=== PATIENT | male | born 1980 | race African-American/Black ===

== ENCOUNTER 2018-04-13 00:20 | Emergency (ER) | payer SELFPAY ==
[2018-04-13] MEDS ORDERED: NORMAL SALINE 1000 ML 1,000 ML IV ONE (00:32)
--- NOTE | 2018-04-13 00:35 | ER Document Report ---
ED General - General Stated Complaint: ETOH Time Seen by Provider: 04/13/18 00:24 Notes: Patient is a 38-year-old male that comes emergency department for chief complaint of feeling weak and tired, he comes by EMS, EMS states that family called and initially patient stated he did not want to come but finally agreed, EMS states the patient had a heart rate initially in the 60s, and then he had bradycardia in the 40s, we placed an IV and gave 0.5 mg of atropine, heart rate went up to 120s and then back down to the 70s. He has been in the 70s and 80s since that time. Patient states he did not have any shortness of breath, he did not have chest pain, he has not had altered mental status and has remained conversational, patient has no cardiac medical history. He denies any medications. He states he had 4 beers tonight in order alcohol. He does have a history of heavy drinking. He denies any recreational drugs. He denies any current complaints other than "feeling really tired". Cousin at bedside. TRAVEL OUTSIDE OF THE [place] IN LAST 30 DAYS: No - Related Data Allergies/Adverse Reactions: trazodone [Trazodone] Allergy (Verified 01/29/15 22:51) Past Medical History - General Information source: Patient - Social History Smoking Status: Never Smoker Frequency of alcohol use: Social Drug Abuse: None Lives with: Friend Family History: None, Reviewed & Not Pertinent, Other Pulmonary Medical History: Denies: Hx Tuberculosis Neurological Medical History: Reports: Hx Migraine Renal/ Medical History: Denies: Hx Epididymitis, Hx Testicular Torsion Psychiatric Medical History: Reports: Hx Bipolar Disorder, Hx Depression, Hx Schizophrenia Past Surgical History: Reports: Hx Orthopedic Surgery. Denies: Hx Appendectomy , Hx Bowel Surgery, Hx Cholecystectomy, Hx Coronary Artery Bypass Graft, Hx Gastric Bypass Surgery, Hx Herniorrhaphy, Hx Pacemaker, Hx Tonsillectomy - Immunizations Hx Diphtheria, Pertussis, Tetanus Vaccination: Yes Review of Systems - Review of Systems Constitutional: See HPI EENT: No symptoms reported Cardiovascular: No symptoms reported Respiratory: No symptoms reported Gastrointestinal: No symptoms reported Genitourinary: No symptoms reported Male Genitourinary: No symptoms reported Musculoskeletal: No symptoms reported Skin: No symptoms reported Hematologic/Lymphatic: No symptoms reported Neurological/Psychological: See HPI Physical Exam - Vital signs Vitals: Resp Pulse Ox 14 100 04/13/18 00:30 04/13/18 00:30 - Notes Notes: GENERAL: Patient interactive, alert, oriented, no signs of distress, he does smell of alcohol. HEAD: Normocephalic, atraumatic. EYES: Pupils equal, round, and reactive to light. Extraocular movements intact. ENT: Oral mucosa moist, tongue midline. NECK: Full range of motion. Supple. Trachea midline. LUNGS: Clear to auscultation bilaterally, no wheezes, rales, or rhonchi. No respiratory distress. HEART: Regular rate and rhythm. No murmur ABDOMEN: Soft, non-tender. Non-distended. Bowel sounds present in all 4 quadrants. EXTREMITIES: Moves all 4 extremities spontaneously. No edema, normal radial and dorsalis pedis pulses bilaterally. No cyanosis. BACK: no cervical, thoracic, lumbar midline tenderness. No saddle anesthesia, normal distal neurovascular exam. NEUROLOGICAL: Alert and oriented x3. Normal speech. [cranial nerves II through XII grossly intact]. PSYCH: Normal affect, normal mood. SKIN: Warm, dry, normal turgor. No rashes or lesions noted. Course - Re-evaluation Re-evalutation: EKG showing sinus rhythm at a rate of 63, normal MN interval, normal QTC, peak T waves with some J-point elevation which is unremarkable given patient's build of being tall and thin and at his young age. Discussed with Dr. Dodson. CBC unremarkable, chemistry unremarkable, alcohol level shows intoxication. Because patient has been bradycardic and was given atropine he was placed in the monitor, monitored for an extended period of a couple of hours, this showed a heart rate averaging in the 50s-60s fairly consistently with no concerning abnormality noted. Patient was asymptomatic including no altered mental status , no chest pain, no difficulty breathing. Patient given IV fluids, afterwards he became more sober, he states he just wants to have referral to both psychiatry and primary care, he denies SI or HI but states he has been on psychiatric medications for mood which helped him feel better in the past and he is interested in these again, however he is not interested in staying, he is ready to leave, he wants to call for a ride. - Vital Signs Vital signs: Temp Pulse Resp BP Pulse Ox 97.4 F 20 101/77 100 04/13/18 05:08 04/13/18 05:01 04/13/18 05:01 04/13/18 05:01 - Laboratory Result Diagrams: 04/13/18 00:41 04/13/18 00:41 Laboratory results interpreted by me: 04/13/18 04/13/18 00:41 00:41 RBC 3.90 L Hgb 13.0 L MCV 98 H RDW 14.1 H Seg Neutrophils % 39.7 L Lymphocytes % 47.6 H Sodium 148.9 H Chloride 112 H Calcium 8.3 L Total Bilirubin < 0.1 L Discharge - Discharge Clinical Impression: Weakness Alcohol intoxication Qualifiers: Complication of substance-induced condition: with unspecified complication Qualified Code(s): F10.929 - Alcohol use, unspecified with intoxication, unspecified Condition: Stable Disposition: HOME, SELF-CARE Additional Instructions: Avoid drinking to intoxication. Your evaluation tonight did not show any concerning abnormalities. Follow-up with primary care and with psychiatry referral listed below, call today for your appointment. See primary care referral listed. Drink plenty of fluids and rest. Return for any concerning symptoms including passing out, chest pain, fever, vomiting, or any other concerning symptoms. [facility] service in [place], [place] Address: [address], [place] [address] Forms: Return to Work Referrals: [facility] [Provider Group] - Follow up as needed [facility] [Provider Group] - Follow up as needed
[2018-04-13 00:59] LABS: ABSOLUTE EOSINOPHILS # (AUTO) 0.1 10^3/uL (0.0-0.6); ABSOLUTE LYMPHOCYTES (AUTO) 2.2 10^3/uL (0.5-4.7); ABSOLUTE MONOCYTES (AUTO) 0.5 10^3/uL (0.1-1.4); ABSOLUTE NEUT (AUTO) 1.8 10^3/uL (1.7-8.2); BASOPHILS % (AUTO) 0.4 % (0-2); EOSINOPHILS % (AUTO) 1.6 % (0-6); LYMPHOCYTES % (AUTO) 47.6 % (13-45); MEAN CORPUSCULAR HEMOGLOBIN 33.4 pg (27.0-33.4); MEAN CORPUSCULAR HGB CONC 34.2 g/dL (32.0-36.0); MEAN CORPUSCULAR VOLUME 98 fl (80-97); MONOCYTES % (AUTO) 10.7 % (3-13); PLATELET COUNT 191 10^3/uL (150-450); RED CELL DISTRIBUTION WIDTH 14.1 % (11.5-14.0); SEGMENTED NEUTROPHILS % (AUTO) 39.7 % (42-78); TOTAL CELLS COUNTED % (AUTO) 100 %; WHITE BLOOD COUNT 4.6 10^3/uL (4.0-10.5)
[2018-04-13 01:31] LABS: ALANINE AMINOTRANSFERASE 24 U/L (21-72); ALCOHOL 215 mg/dL (NONE DETECTED); ALKALINE PHOSPHATASE 48 U/L (38-126); ANION GAP 13 (5-19); ASPARTATE AMINO TRANSFERASE 36 U/L (17-59); BILIRUBIN,TOTAL < 0.1 mg/dL (0.2-1.3); BLOOD UREA NITROGEN 11 mg/dL (7-20); CALCIUM 8.3 mg/dL (8.4-10.2); CARBON DIOXIDE 24 mmol/L (22-30); CHLORIDE 112 mmol/L (98-107); GLUCOSE 82 mg/dL (75-110); POTASSIUM 4.4 mmol/L (3.6-5.0); SODIUM 148.9 mmol/L (137-145)
[2018-04-13] MEDS ORDERED: ONDANSETRON 4 MG TAB.RAPDIS PO ONE (01:40)
[2018-04-13] MEDS ORDERED: ONDANSETRON ODT 4 MG TAB (6 TAB/ER DISP) PO PRN (03:17)
[2018-04-13 05:11] VITALS: BP 101/77
--- NOTE | 2018-04-13 07:10 | EKG REPORT ---
SEVERITY:- NORMAL ECG - SINUS RHYTHM ST ELEV, PROBABLE NORMAL EARLY REPOL PATTERN : Confirmed by: Raul Roman MD 13-Apr-2018 07:10:12
== END 2018-04-13 05:18 | disposition home or self-care (01) ==
LOC: ER 00:20
DX: R53.1 Weakness (principal); F10.929 Alcohol use, unspecified with intoxication, unspecified
CPT/HCPCS: 93005; 99284; 96360; 36415; 80307; 83735; 85025; 80053; 93010; S0119; J7030

== ENCOUNTER 2018-11-04 15:05 | Emergency (ER) | payer SELFPAY ==
[2018-11-04] MEDS ORDERED: IBUPROFEN 800 MG TABLET PO ONE (16:50)
--- NOTE | 2018-11-04 16:52 | ER Document Report ---
ED Medical Screen (RME) - General Chief Complaint: Headache >24 hrs old Stated Complaint: RIGHT SIDE PAIN Time Seen by Provider: 11/04/18 16:50 Mode of Arrival: Ambulatory Information source: Patient Notes: Patient presents complaining of right-sided chest pain for the past 3 days. Patient denies any injury. Patient is right-hand dominant. Patient does complain of increased pain with movement of the right upper extremity. Patient also complains of headache pain for the past 3 days. Patient did take 2, 325 mg aspirin at home prior to arrival. hx: TBI I have greeted and performed a rapid initial assessment of this patient. A comprehensive ED assessment and evaluation of the patient, analysis of test results and completion of the medical decision making process will be conducted by additional ED providers. TRAVEL OUTSIDE OF THE [place] IN LAST 30 DAYS: No - Related Data Allergies/Adverse Reactions: trazodone [Trazodone] Allergy (Verified 01/29/15 22:51) Past Medical History - Social History Chew tobacco use (# tins/day): No Frequency of alcohol use: Occasional Drug Abuse: Marijuana Pulmonary Medical History: Denies: Hx Tuberculosis Neurological Medical History: Reports: Hx Migraine Renal/ Medical History: Denies: Hx Epididymitis, Hx Peritoneal Dialysis, Hx Testicular Torsion Psychiatric Medical History: Reports: Hx Bipolar Disorder, Hx Depression, Hx Schizophrenia Past Surgical History: Reports: Hx Orthopedic Surgery. Denies: Hx Appendectomy, Hx Bowel Surgery, Hx Cholecystectomy, Hx Coronary Artery Bypass Graft, Hx Gastric Bypass Surgery, Hx Herniorrhaphy, Hx Pacemaker, Hx Tonsillectomy - Immunizations Hx Diphtheria, Pertussis, Tetanus Vaccination: Yes Physical Exam - Vital signs Vitals: Temp Pulse Resp BP Pulse Ox 98.6 F 51 L 14 142/91 H 99 11/04/18 15:16 11/04/18 15:16 11/04/18 15:16 11/04/18 15:16 11/04/18 15:16 - Respiratory Respiratory status: No respiratory distress Chest status: Tender, Pain on movement Breath sounds: Normal Chest palpation: Tender Course - Vital Signs Vital signs: Temp Pulse Resp BP Pulse Ox 98.6 F 51 L 14 142/91 H 99 11/04/18 15:16 11/04/18 15:16 11/04/18 15:16 11/04/18 15:16 11/04/18 15:16 Doctor's Discharge - Discharge Referrals: LOCALMD,NO [Primary Care Provider] - Follow up as needed
[2018-11-04 17:31] LABS: ABSOLUTE LYMPHOCYTES (AUTO) 1.2 10^3/uL (0.5-4.7); ABSOLUTE MONOCYTES (AUTO) 0.4 10^3/uL (0.1-1.4); ABSOLUTE NEUT (AUTO) 3.1 10^3/uL (1.7-8.2); BASOPHILS % (AUTO) 0.9 % (0-2); EOSINOPHILS % (AUTO) 0.6 % (0-6); HEMOGLOBIN 14.1 g/dL (13.5-17.0); LYMPHOCYTES % (AUTO) 24.5 % (13-45); MEAN CORPUSCULAR HEMOGLOBIN 33.5 pg (27.0-33.4); MEAN CORPUSCULAR HGB CONC 34.5 g/dL (32.0-36.0); MEAN CORPUSCULAR VOLUME 97 fl (80-97); MONOCYTES % (AUTO) 9.3 % (3-13); PLATELET COUNT 155 10^3/uL (150-450); RED BLOOD COUNT 4.22 10^6/uL (4.35-5.55); RED CELL DISTRIBUTION WIDTH 13.4 % (11.5-14.0); SEGMENTED NEUTROPHILS % (AUTO) 64.7 % (42-78); TOTAL CELLS COUNTED % (AUTO) 100 %; WHITE BLOOD COUNT 4.8 10^3/uL (4.0-10.5)
[2018-11-04 17:47] LABS: ALANINE AMINOTRANSFERASE 44 U/L (21-72); ALBUMIN 4.6 g/dL (3.5-5.0); ALKALINE PHOSPHATASE 60 U/L (38-126); ANION GAP 9 (5-19); ASPARTATE AMINO TRANSFERASE 56 U/L (17-59); BILIRUBIN,DIRECT 0.2 mg/dL (0.0-0.4); BLOOD UREA NITROGEN 12 mg/dL (7-20); CALCIUM 9.7 mg/dL (8.4-10.2); CARBON DIOXIDE 27 mmol/L (22-30); CHLORIDE 103 mmol/L (98-107); GLUCOSE 108 mg/dL (75-110); POTASSIUM 3.8 mmol/L (3.6-5.0); SODIUM 138.6 mmol/L (137-145); TOTAL PROTEIN 7.5 g/dL (6.3-8.2)
--- NOTE | 2018-11-04 17:49 | RADIOLOGY REPORT (SQ) ---
EXAM DESCRIPTION: CHEST 2 VIEWS COMPLETED DATE/TIME: 11/04/2018 5:33 pm REASON FOR STUDY: r side cp COMPARISON: CT chest 07/30/2015 Two-view chest 07/30/2015 EXAM PARAMETERS: NUMBER OF VIEWS: two views TECHNIQUE: Digital Frontal and Lateral radiographic views of the chest acquired. RADIATION DOSE: NA LIMITATIONS: none FINDINGS: LUNGS AND PLEURA: No opacities, masses or pneumothorax. No pleural effusion. MEDIASTINUM AND HILAR STRUCTURES: No masses or contour abnormalities. HEART AND VASCULAR STRUCTURES: Heart normal size. No evidence for failure. BONES: No acute findings. HARDWARE: None in the chest. OTHER: No other significant finding. IMPRESSION: NO ACUTE RADIOGRAPHIC FINDING IN THE CHEST. TECHNICAL DOCUMENTATION: JOB ID: [id number] [employer]- All Rights Reserved Reading location - IP/workstation name: [email or web address]
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
--- NOTE | 2018-11-04 22:59 | EKG REPORT ---
SEVERITY:- OTHERWISE NORMAL ECG - SINUS BRADYCARDIA ST ELEV, PROBABLE NORMAL EARLY REPOL PATTERN : Confirmed by: Smiley Silva MD 04-Nov-2018 22:58:14
[2018-11-04 23:48] VITALS: BP 119/85
== END 2018-11-04 23:48 | disposition home or self-care (01) ==
LOC: ER 15:05
DX: R07.89 Other chest pain (principal); M89.8X1 Other specified disorders of bone, shoulder; G89.29 Other chronic pain; F17.200 Nicotine dependence, unspecified, uncomplicated; Z88.8 Allergy status to other drugs, medicaments and biological substances
CPT/HCPCS: 36415; 71046; 80053; 84484; 85025; 93005; 93010; 99285

== ENCOUNTER 2019-06-21 10:13 | Emergency (ER) | payer SELFPAY ==
[2019-06-21] MEDS ORDERED: NORMAL SALINE 1000 ML 1,000 ML IV ONE (10:27)
[2019-06-21] MEDS ORDERED: ONDANSETRON 4 MG TAB.RAPDIS PO ONE (10:27)
[2019-06-21] MEDS ORDERED: MORPHINE SULFATE 10 MG/ML INJ IV ONE (10:28)
--- NOTE | 2019-06-21 10:30 | ER Document Report ---
ED General - General Chief Complaint: Vomiting Stated Complaint: VOMITING BLOOD Time Seen by Provider: 06/21/19 10:27 Mode of Arrival: Ambulatory Information source: Patient TRAVEL OUTSIDE OF THE [place] IN LAST 30 DAYS: No - HPI Notes: Patient states when he woke up this morning he had nausea and vomiting. States he has so has bilateral lower quadrant abdominal pain. It is crampy in nature. It is moderate. It does radiate to his back. It is worse with movement and better with rest. He states he has had some blood in his vomitus. No problems with urine or stool. No previous abdominal surgeries. States that he felt fine when he went to bed last night. No fevers. - Related Data Allergies/Adverse Reactions: trazodone [Trazodone] Allergy (Verified 06/21/19 10:14) Past Medical History - General Information source: Patient - Social History Smoking Status: Current Every Day Smoker Frequency of alcohol use: None Drug Abuse: Marijuana Family History: Reviewed & Not Pertinent, Other Patient has suicidal ideation: No Patient has homicidal ideation: No Pulmonary Medical History: Denies: Hx Tuberculosis Neurological Medical History: Reports: Hx Migraine Renal/ Medical History: Denies: Hx Epididymitis, Hx Peritoneal Dialysis, Hx Testicular Torsion Psychiatric Medical History: Reports: Hx Bipolar Disorder, Hx Depression, Hx Schizophrenia Past Surgical History: Reports: Hx Orthopedic Surgery. Denies: Hx Appendectomy, Hx Bowel Surgery, Hx Cholecystectomy, Hx Coronary Artery Bypass Graft, Hx Gastric Bypass Surgery, Hx Herniorrhaphy, Hx Pacemaker, Hx Tonsillectomy - Immunizations Hx Diphtheria, Pertussis, Tetanus Vaccination: Yes Review of Systems - Review of Systems Constitutional: denies: Chills, Fever Cardiovascular: denies: Chest pain, Dyspnea Respiratory: denies: Cough, Short of breath Gastrointestinal: Abdominal pain, Nausea, Vomiting -: Yes All other systems reviewed and negative Physical Exam - Vital signs Vitals: Temp Pulse Resp BP Pulse Ox 98.1 F 56 L 16 120/68 99 06/21/19 10:18 06/21/19 10:18 06/21/19 10:18 06/21/19 10:18 06/21/19 10:18 Interpretation: Normal - General General appearance: Appears well, Alert - HEENT Head: Normocephalic, Atraumatic Eyes: Normal Pupils: PERRL - Respiratory Respiratory status: No respiratory distress Chest status: Nontender Breath sounds: Normal Chest palpation: Normal - Cardiovascular Rhythm: Regular Heart sounds: Normal auscultation Murmur: No - Abdominal Inspection: Normal Distension: No distension Bowel sounds: Normal Tenderness: Tender - Abdomen has moderate tenderness bilaterally in the lower quadrants. No rebound no guarding. Organomegaly: No organomegaly - Back Back: Normal, Nontender - Extremities General upper extremity: Normal inspection, Nontender, Normal color, Normal ROM, Normal temperature General lower extremity: Normal inspection, Nontender, Normal color, Normal ROM, Normal temperature, Normal weight bearing. No: Bello's sign - Neurological Neuro grossly intact: Yes Cognition: Normal Orientation: AAOx4 Aryan Coma Scale Eye Opening: Spontaneous [place] Coma Scale Verbal: Oriented Aryan Coma Scale Motor: Obeys Commands Aryan Coma Scale Total: 15 Speech: Normal Motor strength normal: LUE, RUE, LLE, RLE Sensory: Normal - Psychological Associated symptoms: Normal affect, Normal mood - Skin Skin Temperature: Warm Skin Moisture: Dry Skin Color: Normal Course - Re-evaluation Re-evalutation: 06/21/19 11:28 Patient reassessed. Vital signs are stable. Abdomen is nonsurgical. Patient has some evidence of dehydration but otherwise on remarkable laboratories. CT the abdomen shows no evidence of acute surgical process. It does show some questionable steatosis. Patient was educated about the need to have this followed by his primary care physician. - Vital Signs Vital signs: Temp Pulse Resp BP Pulse Ox 98.1 F 56 L 16 120/68 99 06/21/19 10:18 06/21/19 10:18 06/21/19 10:18 06/21/19 10:18 06/21/19 10:18 - Laboratory Result Diagrams: 06/21/19 10:35 06/21/19 10:35 Laboratory results interpreted by me: 06/21/19 06/21/19 06/21/19 10:35 10:35 10:40 RBC 4.02 L MCV 100 H MCH 33.8 H Lymph % (Auto) 9.2 L Seg Neutrophils % 86.2 H Carbon Dioxide 21 L BUN 23 H AST 81 H Urine Protein 30 H Urine Ketones 80 H Laboratory 06/21/19 06/21/19 06/21/19 10:35 10:35 10:40 WBC 6.0 RBC 4.02 L Hgb 13.6 Hct 40.1 MCV 100 H MCH 33.8 H MCHC 33.9 RDW 13.6 Plt Count 172 Lymph % (Auto) 9.2 L [place] % (Auto) 4.0 Eos % (Auto) 0.0 Baso % (Auto) 0.6 Absolute Neuts (auto) 5.2 Absolute Lymphs (auto) 0.5 Absolute Monos (auto) 0.2 Absolute Eos (auto) 0.0 Absolute Basos (auto) 0.0 Seg Neutrophils % 86.2 H Sodium 138.9 Potassium 4.2 Chloride 101 Carbon Dioxide 21 L Anion Gap 17 BUN 23 H Creatinine 1.00 Est GFR ( Amer) > 60 Est GFR (MDRD) Non-Af > 60 Glucose 91 Calcium 10.0 Total Bilirubin 1.0 Direct Bilirubin 0.4 Neonat Total Bilirubin Not Reportable Neonat Direct Bilirubin Not Reportable Neonat Indirect Bili Not Reportable AST 81 H ALT 43 Alkaline Phosphatase 81 Total Protein 7.9 Albumin 5.0 Lipase 66.8 Urine Color YELLOW Urine Appearance CLEAR Urine pH 5.0 Ur Specific [place] 1.025 Urine Protein 30 H Urine Glucose (UA) NEGATIVE Urine Ketones 80 H Urine Blood NEGATIVE Urine Nitrite NEGATIVE Urine Bilirubin NEGATIVE Urine Urobilinogen NEGATIVE Ur Leukocyte Esterase NEGATIVE Urine WBC (Auto) 0 Urine Mucus (Auto) RARE Urine Ascorbic Acid NEGATIVE - Diagnostic Test Radiology reviewed: Image reviewed, Reports reviewed Radiology results interpreted by me: 06/21/19 11:29 Abdomen/Pelvis CT 06/21/19 10:28 IMPRESSION: 1. Normal appendix. 2. Likely hepatic steatosis. 3. No other evidence of acute intra-abdominal/pelvic process. Discharge - Discharge Clinical Impression: Vomiting Qualifiers: Vomiting type: unspecified Vomiting Intractability: intractable Nausea presence: with nausea Qualified Code(s): R11.2 - Nausea with vomiting, unspecified Condition: Stable Disposition: HOME, SELF-CARE Instructions: Vomiting ([facility]) Additional Instructions: The CAT scan shows some extra fat cells in your liver. You will need to discuss with your primary care physician the monitoring of this with periodic ultra sounds. Prescriptions: Ondansetron [Zofran Odt 4 mg Tablet] 1 - 2 tab PO Q4H PRN #15 tab.rapdis PRN Reason: For Nausea/Vomiting Forms: Return to Work Referrals: RUDY GONZALEZ MD [ACTIVE STAFF] - Follow up as needed
[2019-06-21 10:51] LABS: ABSOLUTE LYMPHOCYTES (AUTO) 0.5 10^3/uL (0.5-4.7); ABSOLUTE MONOCYTES (AUTO) 0.2 10^3/uL (0.1-1.4); ABSOLUTE NEUT (AUTO) 5.2 10^3/uL (1.7-8.2); BASOPHILS % (AUTO) 0.6 % (0-2); HEMATOCRIT 40.1 % (37.9-51.0); HEMOGLOBIN 13.6 g/dL (13.5-17.0); LYMPHOCYTES % (AUTO) 9.2 % (13-45); MEAN CORPUSCULAR HEMOGLOBIN 33.8 pg (27.0-33.4); MEAN CORPUSCULAR HGB CONC 33.9 g/dL (32.0-36.0); MEAN CORPUSCULAR VOLUME 100 fl (80-97); PLATELET COUNT 172 10^3/uL (150-450); RED BLOOD COUNT 4.02 10^6/uL (4.35-5.55); RED CELL DISTRIBUTION WIDTH 13.6 % (11.5-14.0); SEGMENTED NEUTROPHILS % (AUTO) 86.2 % (42-78); TOTAL CELLS COUNTED % (AUTO) 100 %
[2019-06-21 11:02] LABS: APPEARANCE,URINE CLEAR; BILIRUBIN,URINE NEGATIVE (NEGATIVE); COLOR,URINE YELLOW; GLUCOSE, URINE NEGATIVE (NEGATIVE); KETONES,URINE 80 mg/dL (NEGATIVE); LEUKOCYTE ESTERASE,URINE NEGATIVE (NEGATIVE); NITRITE,URINE NEGATIVE (NEGATIVE); PROTEIN,URINE 30 mg/dL (NEGATIVE); URINE SPECIFIC GRAVITY 1.025; UROBILINOGEN,URINE NEGATIVE mg/dL (<2.0)
[2019-06-21 11:15] LABS: ALKALINE PHOSPHATASE 81 U/L (38-126); ANION GAP 17 (5-19); ASPARTATE AMINO TRANSFERASE 81 U/L (17-59); BILIRUBIN,DIRECT 0.4 mg/dL (0.0-0.4); BLOOD UREA NITROGEN 23 mg/dL (7-20); CARBON DIOXIDE 21 mmol/L (22-30); CHLORIDE 101 mmol/L (98-107); GLUCOSE 91 mg/dL (75-110); POTASSIUM 4.2 mmol/L (3.6-5.0); TOTAL PROTEIN 7.9 g/dL (6.3-8.2)
--- NOTE | 2019-06-21 11:19 | RADIOLOGY REPORT (SQ) ---
EXAM DESCRIPTION: CT ABD/PELVIS WITH IV ONLY COMPLETED DATE/TIME: 06/21/2019 11:05 am REASON FOR STUDY: rlq pain COMPARISON: 11/04/2018 radiograph, 07/30/2015 CT TECHNIQUE: CT scan of the abdomen and pelvis performed using helical scanning technique with dynamic intravenous contrast injection. No oral contrast. Images reviewed with lung, soft tissue, and bone windows. Reconstructed coronal and sagittal MPR images reviewed. Delayed images for evaluation of the urinary system also acquired. All images stored on PACS. All CT scanners at this facility use dose modulation, iterative reconstruction, and/or weight based d osing when appropriate to reduce radiation dose to as low as reasonably achievable (ALARA). [facility]: Dose Right [facility]: CareDose [facility]: Dose Right [facility]: Teradose 4D [facility]: [email or web address] CONTRAST TYPE AND DOSE: contrast/concentration: Isovue 350.00 mg/ml; Total Contrast Delivered: 72.0 ml; Total Saline Delivered: 66.0 ml RENAL FUNCTION: None required. The patient is less than 50 years old. RADIATION DOSE: CT Rad equipment meets quality standard of care and radiation dose reduction techniq ues were employed. CTDIvol: 2.4 - 2.8 mGy. DLP: 249 mGy-cm.. LIMITATIONS: None. FINDINGS: LOWER CHEST: No significant findings. No nodules or infiltrates. LIVER: Likely hepatic steatosis. No focal lesions. SPLEEN: Normal size. No focal lesions. PANCREAS: No masses. No significant calcifications. No adjacent inflammation or peripancreatic fluid collections. Pancreatic duct not dilated. GALLBLADDER: No identified stones by CT criteria. No inflammatory changes to suggest cholecystitis. ADRENAL GLANDS: No significant masses or asymmetry. RIGHT KIDNEY AND URETER: No solid masses. No significant calcifications. No hydronephrosis or hyd roureter. LEFT KIDNEY AND URETER: No solid masses. No significant calcifications. No hydronephrosis or hydr oureter. AORTA AND VESSELS: No aneurysm. No dissection. Renal arteries, SMA, celiac without stenosis. RETROPERITONEUM: No retroperitoneal adenopathy, hemorrhage or masses. BOWEL AND PERITONEAL CAVITY: No masses or inflammatory changes. No free fluid or peritoneal masses. APPENDIX: Normal appendix (series 601, image 53) PELVIS: Decompressed urinary bladder. No mass or adenopathy. No free fluid. ABDOMINAL WALL: No masses. No hernias. BONES: No significant or acute findings. OTHER: No other significant finding. IMPRESSION: 1. Normal appendix. 2. Likely hepatic steatosis. 3. No other evidence of acute intra-abdominal/pelvic process. TECHNICAL DOCUMENTATION: JOB ID: [id number] Quality ID # [id number]: Final reports with documentation of one or more dose reduction techniques (e.g., Au tomated exposure control, adjustment of the mA and/or kV according to patient size, use of iterative reconstruction technique) 2010 [employer]- All Rights Reserved Reading location - IP/workstation name: [email or web address]
[2019-06-21 12:31] VITALS: BP 111/61
== END 2019-06-21 12:39 | disposition home or self-care (01) ==
LOC: ER 10:13
DX: K92.0 Hematemesis (principal); R10.31 Right lower quadrant pain; R10.32 Left lower quadrant pain; R10.813 Right lower quadrant abdominal tenderness; R10.814 Left lower quadrant abdominal tenderness; E86.0 Dehydration; F17.200 Nicotine dependence, unspecified, uncomplicated; F12.10 Cannabis abuse, uncomplicated; Z88.8 Allergy status to other drugs, medicaments and biological substances
CPT/HCPCS: 36415; 83690; 85025; 80053; 81001; 74177; S0119; J2270; J7030; 96361; 96374; 99284

== ENCOUNTER 2020-06-23 01:47 | Emergency (ER) | payer OTHER ==
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
[2020-06-23 04:55] VITALS: BP 110/80
== END 2020-06-23 05:10 | disposition home or self-care (01) ==
LOC: ER 01:47
DX: S09.90XA Unspecified injury of head, initial encounter (principal); M54.2 Cervicalgia; V49.9XXA Car occupant (driver) (passenger) injured in unspecified traffic accident, initial encounter; F17.200 Nicotine dependence, unspecified, uncomplicated; F12.10 Cannabis abuse, uncomplicated
CPT/HCPCS: 70450; 72125; 82962; 99284

== ENCOUNTER 2020-09-24 07:41 | Emergency (ER) | payer SELFPAY ==
--- NOTE | 2020-09-24 08:21 | ER Document Report ---
ED Skin Rash/Insect Bite/Abscs - General Chief Complaint: Rash Stated Complaint: RASH Time Seen by Provider: 09/24/20 08:12 Primary Care Provider: [facility] [Provider Group] - Follow up in 1 week TRAVEL OUTSIDE OF THE [place] IN LAST 30 DAYS: No - HPI Notes: 40-year-old male to the emergency department with complaints of a painful rash that started on the left side of his chest wall on Wednesday and has gotten worse. He states he tried to put witch darian on it as well as cortisone cream without any benefit. He denies any fevers or chills. He denies any contacts who is also had a similar rash. He denies any chest pain, shortness of breath, nausea vomiting, loss of taste or smell, COVID-19 exposure. - Related Data Allergies/Adverse Reactions: trazodone [Trazodone] Allergy (Verified 09/24/20 07:57) Past Medical History - General Information source: Patient - Social History Smoking Status: Current Every Day Smoker Frequency of alcohol use: Occasional Drug Abuse: Marijuana Family History: Reviewed & Not Pertinent, Other Pulmonary Medical History: Denies: Hx Tuberculosis Neurological Medical History: Reports: Hx Migraine Renal/ Medical History: Denies: Hx Epididymitis, Hx Peritoneal Dialysis, Hx Testicular Torsion Psychiatric Medical History: Reports: Hx Bipolar Disorder, Hx Depression, Hx Schizophrenia Past Surgical History: Reports: Hx Orthopedic Surgery. Denies: Hx Appendectomy, Hx Bowel Surgery, Hx Cholecystectomy, Hx Coronary Artery Bypass Graft, Hx Gastric Bypass Surgery, Hx Herniorrhaphy, Hx Pacemaker, Hx Tonsillectomy - Immunizations Hx Diphtheria, Pertussis, Tetanus Vaccination: Yes Review of Systems - Review of Systems Constitutional: denies: Chills, Fever EENT: No symptoms reported Cardiovascular: denies: Chest pain, Palpitations, Heart racing, Dizziness, Lightheaded Respiratory: denies: Cough, Hurts to breathe, Short of breath Gastrointestinal: denies: Abdominal pain, Diarrhea, Nausea, Vomiting Musculoskeletal: See HPI Skin: See HPI, Rash Hematologic/Lymphatic: No symptoms reported Neurological/Psychological: No symptoms reported -: Yes All other systems reviewed and negative Physical Exam - Vital signs Vitals: Temp Pulse BP Pulse Ox 98.0 F 55 L 101/80 100 09/24/20 07:49 09/24/20 07:49 09/24/20 07:49 09/24/20 07:49 - General General appearance: Appears well, Alert In distress: None - HEENT Head: Normocephalic, Atraumatic Eyes: Normal Pupils: PERRL Neck: Normal, Supple. No: Lymphadenopathy - Respiratory Respiratory status: No respiratory distress Chest status: Nontender Breath sounds: Normal. No: Rales, Rhonchi, Wheezing Chest palpation: Normal - Cardiovascular Rhythm: Regular Heart sounds: Normal auscultation Murmur: No - Abdominal Inspection: Normal Distension: No distension Bowel sounds: Normal Tenderness: Nontender. No: Tender, McBurney's point, Ulrich's sign, Guarding, Rebound Organomegaly: No organomegaly - Back Back: Normal. No: Deformity/step-off, CVA tenderness, Vertebra tenderness - Extremities General upper extremity: Normal inspection, Nontender, Normal color, Normal ROM, Normal temperature General lower extremity: Normal inspection, Nontender, Normal color, Normal ROM, Normal temperature, Normal weight bearing - Neurological Neuro grossly intact: Yes Cognition: Normal Orientation: AAOx4 Aryan Coma Scale Eye Opening: Spontaneous Aryan Coma Scale Verbal: Oriented Aryan Coma Scale Motor: Obeys Commands [employer] [place] Coma Scale Total: 15 Speech: Normal Cranial nerves: Normal Cerebellar coordination: Normal Motor strength normal: LUE, RUE, LLE, RLE 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 There is no streaking lymphangitis with it. The vesicles are not weeping. It is tender to palpation. This is most consistent with shingles. Course - Re-evaluation Re-evalutation: 09/24/20 Impression: Shingles. We will go ahead and start on acyclovir, prednisone, pain control. Have advised patient to follow-up outpatient and keep the rash covered. Encouraged to return if he has worsening symptoms. Patient agrees with the plan. - Vital Signs Vital signs: Temp Pulse Resp BP Pulse Ox 98.0 F 55 L 101/80 100 09/24/20 07:49 09/24/20 07:49 09/24/20 07:49 09/24/20 07:49 Discharge - Discharge Clinical Impression: Shingles Qualifiers: Herpes zoster complications: without complications Qualified Code(s): B02.9 - Zoster without complications Condition: Stable Disposition: HOME, SELF-CARE Instructions: Shingles (OM) Additional Instructions: Complete all medications as prescribed. Return if you have worsening symptoms such as worsening pain, worsening rash, fevers, or any other concerns. You must keep the rash covered at all times. Prescriptions: Prednisone [Deltasone 20 mg Tablet] 3 tab PO DAILY 5 Days #15 tablet Hydrocodone/Acetaminophen [[place] 5-325 mg Tablet] 1 tab PO Q6H #10 tablet Acyclovir [Zovirax 800 mg Tablet] 800 mg PO 5XD #50 tab Forms: Return to Work Referrals: [facility] [Provider Group] - Follow up in 1 week
[2020-09-24] MEDS ORDERED: PREDNISONE 20 MG TABLET PO ONE (08:54)
[2020-09-24] MEDS ORDERED: HYDROCODONE/ACETAMINOPHEN 5-325 MG TABLET PO ONE (08:54)
[2020-09-24 10:05] VITALS: BP 110/68
== END 2020-09-24 10:05 | disposition home or self-care (01) ==
LOC: ER 07:41
DX: B02.9 Zoster without complications (principal); R07.89 Other chest pain; F17.200 Nicotine dependence, unspecified, uncomplicated
CPT/HCPCS: 99284; J7512